=== PATIENT | female | born 1950 | race Caucasian/White ===

== ENCOUNTER 2017-12-09 12:13 | Outpatient (CLI) | payer MEDICARE, BC | END 2017-12-09 12:14 | disposition home or self-care (01) | LOC: BICRAD 12:13 | PROVIDERS: ATTEND Family Medicine | DX: M25.551 Pain in right hip (principal); M16.11 Unilateral primary osteoarthritis, right hip; M47.898 Other spondylosis, sacral and sacrococcygeal region | CPT/HCPCS: 72202 ==

== ENCOUNTER 2018-05-21 10:35 | Outpatient (CLI) | payer MEDICARE, BC | END 2018-05-21 10:36 | disposition home or self-care (01) | LOC: BICMAMMO 10:35 | PROVIDERS: ATTEND Family Medicine | DX: Z12.31 Encounter for screening mammogram for malignant neoplasm of breast (principal); Z80.3 Family history of malignant neoplasm of breast | CPT/HCPCS: 77063; 77067 ==

== ENCOUNTER 2018-08-04 02:44 | Observation (INO) | payer MEDICARE, BC ==
[2018-08-04 03:10] LABS: #Basophils 0.1 thou/uL (0.0-0.2); #Eosinphils 0.3 thou/uL (0.0-0.7); #Lymphocytes 1.4 thou/uL (1.20-3.40); #Monocytes 0.5 thou/uL (0.11-0.59); #Neutrophils 3.4 thou/uL (1.40-6.50); %Eosinophils 5.5 % (0.0-10.0); %Lymphocytes 24.3 % (21.0-51.0); %Monocytes 7.9 % (0.0-10.0); %Neutrophils 60.4 % (42.0-75.0); Hemoglobin 12.6 g/dL (12.0-16.0); Mean Corpuscular HGB CONC 31.9 g/dL (32.0-36.0); Mean Corpuscular Hemoglobin 29.6 pg (27.0-31.0); Mean Corpuscular Volume 92.9 fL (78.0-98.0); Mean Platelet Volume 6.8 fL (7.4-10.4); Platelet Count 230 thou/uL (130-400); RBC Distribution Width 12.8 % (11.5-14.5); Red Blood Cell (RBC) Count 4.25 mill/uL (4.20-5.40); White Blood Cell (WBC) Count 5.7 thou/uL (4.8-10.8)
[2018-08-04] MEDS ORDERED: Nitroglycerin 4.9 GM Bottle ONE (03:23)
[2018-08-04] MEDS ORDERED: Nitroglycerin 0.4 MG TAB (25 Tab Bottle) ONE (03:27)
[2018-08-04] MEDS ORDERED: Acetaminophen 500 MG TAB ONE (03:42)
[2018-08-04 03:50] LABS: AST (SGOT) 24 U/L (5-34); Protein, Total 6.9 g/dL (6.0-8.3)
[2018-08-04 03:53] LABS: ALT (SGPT) 24 U/L (8-55); Albumin 4.5 g/dL (3.4-4.8); Alkaline Phosphatase 68 U/L (40-150); Anion Gap 14 mmol/L (10-20); BUN (Urea Nitrogen) 22 mg/dL (9.8-20.1); Bilirubin, Total 0.4 mg/dL (0.2-1.2); Calc. Creatinine Clearance 0 mL/min (70-130); Calcium 10.8 mg/dL (7.8-10.44); Carbon Dioxide 23 mmol/L (23-31); Chloride 107 mmol/L (98-107); Estimated GFR-MDRD 75; Globulin 2.4 g/dL (2.4-3.5); Glucose 107 mg/dL (80-115); Sodium 140 mmol/L (136-145)
[2018-08-04] MEDS ORDERED: Aspirin Chewable 81 MG TAB ONE (03:58)
[2018-08-04 07:07] LABS: Troponin I Less than 0.010 ng/mL (< 0.028)
[2018-08-04] MEDS ORDERED: Eucerin (Mineral Oil/Petrolatum,White) 30 gm Jar TOP PRN (07:26)
[2018-08-04] MEDS ORDERED: Zolpidem Tartrate 5 MG TAB PO PRN (07:26)
[2018-08-04] MEDS ORDERED: Cepastat Lozenges 1 LOZ PO PRN (07:26)
[2018-08-04] MEDS ORDERED: Ondansetron PF 4 MG/2 ML Vial IVP PRN (07:26)
[2018-08-04] MEDS ORDERED: Loratadine 10 MG TAB PO PRN (07:26)
[2018-08-04] MEDS ORDERED: Ondansetron ODT 4 MG TAB PO PRN (07:26)
[2018-08-04] MEDS ORDERED: hydrALAZINE 20 MG/ML VIAL SLOW IVP PRN (07:26)
[2018-08-04] MEDS ORDERED: Diabetic Tussin 200 MG/10 ML UDCUP PO PRN (07:26)
[2018-08-04] MEDS ORDERED: Bisacodyl 10 MG SUPP PR PRN (07:26)
[2018-08-04] MEDS ORDERED: Calcium Carbonate 500 MG ChewTAB PO PRN (07:26)
[2018-08-04] MEDS ORDERED: Acetaminophen 325 MG TAB PO PRN (07:26)
[2018-08-04] MEDS ORDERED: Sodium Chloride 0.65% Nasal 44 ML BOT EA NARE PRN (07:26)
[2018-08-04] MEDS ORDERED: Artificial Tears 18 DROP/0.9 ML EA EYE PRN (07:26)
[2018-08-04] MEDS ORDERED: Loperamide HCl 2 MG CAP PO PRN (07:26)
[2018-08-04] MEDS ORDERED: Nitroglycerin 0.4 MG TAB (25 Tab Bottle) SL PRN (07:26)
[2018-08-04] MEDS ORDERED: Senokot S 8.6-50 MG TAB PO PRN (07:26)
--- NOTE | 2018-08-04 08:49 | RAD ---
CHEST 1 VIEW: Date: 08/04/18 HISTORY: Chest pain. COMPARISON: None. FINDINGS: Lungs are clear. No pneumothorax or effusion. Cardiac silhouette and mediastinal contour within buzz l limits. IMPRESSION: No acute intrathoracic abnormality. POS: [facility]
[2018-08-04] MEDS ORDERED: Aspirin 325 mg Enteric Coated Tablet PO SCH (09:00)
[2018-08-04] MEDS ORDERED: Famotidine 20 MG TAB PO SCH (09:00)
[2018-08-04 09:26] LABS: Troponin I Less than 0.010 ng/mL (< 0.028)
[2018-08-04] MEDS ORDERED: Famotidine 20 MG TAB ONE (10:41)
--- NOTE | 2018-08-04 12:14 | SS ---
DATE OF ADMISSION: 08/04/2018 DATE OF DISCHARGE: 08/04/2018 PRIMARY CARE PHYSICIAN: Danita Cantrell MD REASON FOR ADMISSION: Chest pain. HISTORY OF PRESENT ILLNESS: A 68-year-old female who has underlying history of hypertension, osteoarthritis, who presented to emergency room for evaluation of chest pain. The patient reports that for last couple of weeks, she is experiencing intermittent chest pain which she describes to left-sided substernal tightness feeling, lasts for few minutes, then subsides by itself. There is no particular relation with exertion, food, or respiration. Last night around midnight, she was experiencing similar discomfort in her chest with tightness feeling without any radiation, without any association of nausea, vomiting, or diaphoresis. She was feeling mild shortness of breath. She checked her blood pressure, at that time her blood pressure was very high. Per patient, it was 180/101. She checked blood pressure several times periodically after resting, but her blood pressure was still remaining very high and that is why finally she decided to go to emergency room because her substernal chest tightness feeling was not subsiding. In the emergency room, electrocardiogram was unremarkable without any acute ischemic changes. She had nonspecific right bundle-branch block pattern. She also had negative 3 cardiac enzymes and subsequently, the patient was completely chest pain-free in the emergency room. In the emergency room, she was given aspirin, Tylenol, and nitroglycerin sublingual. Subsequently, the patient did not have any further chest pain. The patient already ruled out acute coronary syndrome at [facility] as our hospital does not have any bed available and that is why this patient is transferred to [facility], where I have evaluated personally bedside and history obtained from her. Currently, the patient is completely asymptomatic. She agreed to go for stress test. The patient reports that several years ago, she had cardiac cath done. At that time, everything was normal. Normally, the patient's blood pressure remains in 130s and recently cholesterol checked, which was also at target. The patient is doing healthy lifestyle measure at home. She is nonsmoker. She does have family history of coronary artery disease. REVIEW OF SYSTEMS: CONSTITUTIONAL: Negative for weight loss or gain, ability to conduct usual activities. SKIN: Negative for rash, itching. EYES: Negative for double vision, pain. ENT/MOUTH: Negative for nose bleeding, neck stiffness, pain, tenderness. CARDIOVASCULAR: Negative for palpitations, dyspnea on exertion, orthopnea. RESPIRATORY: Negative for shortness of breath, wheezing, cough, hemoptysis, fever or night sweats. GASTROINTESTINAL: Negative for poor appetite, abdominal pain, heartburn, nausea , vomiting, constipation, or diarrhea. GENITOURINARY: Negative for urgency, frequency, dysuria, nocturia. MUSCULOSKELETAL: Negative for pain, swelling. NEUROLOGIC/PSYCHIATRIC: Negative for anxiety, depression. ALLERGY/IMMUNOLOGIC: Negative for skin rash, bleeding tendency. Please see my HPI for pertinent positive and negative. All other review of systems reviewed and negative except as mentioned in HPI. PAST MEDICAL HISTORY: Hypertension, premature ventricular complexes, osteoarthritis. PAST SURGICAL HISTORY: Breast lump removed from breast, cardiac catheterization , cholecystectomy, lumbar laminectomy. PAST PSYCHIATRIC HISTORY: Reviewed and negative. SOCIAL HISTORY: The patient is . She drinks alcohol socially occasionally. She denies any smoking. She denies any other illicit drug abuse. FAMILY HISTORY: Positive for coronary artery disease to her father. No family history of cancer or stroke. ALLERGIES: NO KNOWN DRUG ALLERGIES. CURRENT HOME MEDICATIONS: 1. Atenolol 25 mg daily. 2. Detrol 4 mg daily. 3. Aspirin 81 mg daily. 4. Calcium with vitamin D 2 tablets daily. 5. Glucosamine 3 tablets daily. EMERGENCY ROOM COURSE: The patient is given aspirin, Tylenol, and nitroglycerin. PHYSICAL EXAMINATION: VITAL SIGNS: Currently, blood pressure 145/80, pulse 68, respiratory rate 16, temperature 98.3, saturation 99% on room air. Weight 64.4 kg. GENERAL: The patient is currently alert, oriented, no acute distress. HEENT: Head; normocephalic, atraumatic. Eyes; pupils round, reactive to light. Extraocular muscle intact. ENT, oropharynx within normal limits. Moist mucous membranes. No oral lesion. No pharyngeal erythema. No exudate. NECK: Supple. No JVD. No thyromegaly. No carotid bruit. No jugular venous distention. LUNGS: Clear to auscultation without any rhonchi or rales. CARDIAC: S1 and S2 regular. No murmur. No gallop. No rub. ABDOMEN: Soft. Bowel sounds present. Nontender. Nondistended. No organomegaly. No mass. No suprapubic tenderness. BACK: Unremarkable. No CVA tenderness. EXTREMITIES: Upper extremities, passive movement of all joints are normal. Lower extremities, no edema. Good distal pulsation. SKIN: No skin rash. HEMATOLOGICAL SYSTEM: No lymphadenopathy. NEUROLOGIC: Nonfocal examination. SIGNIFICANT LABORATORY DATA: EKG showing incomplete right bundle-branch block pattern, nonspecific ST-T changes. Chest x-ray based on my review, no acute cardiopulmonary process. CBC; WBC 5.7, hemoglobin 12.6, platelet 230. BMP; sodium 140, potassium 4.0, chloride 107, carbon dioxide 23, BUN 22, creatinine 0.77, glucose 107, calcium 10.8. LFT; protein 6.9, albumin 4.5, AST 24, ALT 24. BNP 135. Cardiac enzymes negative x3. ASSESSMENT AND PLAN: 1. Chest pain. Already ruled out acute coronary syndrome. Underlying cardiac etiology needs to be excluded. She has atypical description of her chest pain. We will obtain exercise Cardiolite stress test for diagnostic reason. Meanwhile, we will continue with aspirin and the patient's home medication atenolol 25 mg p.o. daily. The patient will need better blood pressure control and that is why I advised her to follow up with primary care physician. If stress test is negative, then this patient will be discharged home later on today. 2. Hypertension, currently not well controlled, but may be related with stress response, but I advised to increase atenolol 25 mg twice daily and monitor blood pressure at home and then follow up with primary care physician to add any other antihypertensive medication after discharge. 3. Urge incontinence. Continue Detrol 4 mg p.o. daily. 4. Osteoarthritis. Continue calcium with vitamin D and glucosamine as per home dosage. DVT prophylaxis not needed because we are expecting discharge in 24 hours. Gastrointestinal prophylaxis. Pepcid 20 mg p.o. b.i.d. 5. Code status: The patient is full code. The patient's is surrogate decision maker. DISPOSITION PLAN: If stress is negative, then the patient will be discharged later on today. DISCHARGE DISPOSITION: Home. PRIMARY DISCHARGE DIAGNOSIS: Chest pain, ruled out acute coronary syndrome. SECONDARY DISCHARGE DIAGNOSES: Hypertension, osteoarthritis, urge incontinence. PRIMARY PROCEDURE/OPERATION: None. RADIOLOGICAL INVESTIGATION: Chest x-ray, normal. Stress test, pending. Significant labs, please see above my H and P. DISCHARGE MEDICATIONS: The patient is advised to take; 1. Aspirin 81 mg p.o. daily. 2. Atenolol 25 mg p.o. b.i.d. 3. The patient will continue Detrol 4 mg daily and glucosamine as per home dosage. CONTRAINDICATION: None. CODE STATUS: Full code. INPATIENT PLATFORM LOADER: None. ALLERGIES: NO KNOWN DRUG ALLERGIES. DISCHARGE PLAN: Posthospital, the patient will make appointment with primary care physician in one week. HOSPITAL COURSE: Please see my HPI above for further details. This patient is admitted for chest pain. If her stress test is negative, then we will consider discharging her home later on today. stress test is normal. pt is admitted and discharged on same day Job ID: [id number] [facility]
--- NOTE | 2018-08-04 17:50 | NM ---
NUCLEAR MEDICINE CARDIAC STRESS TEST WITH EJECTION FRACTION 08/04/18 HISTORY: Chest pain. COMPARISON: None. TECHNIQUE: Stress and rest performed after the intravenous administration of 27.3 and 9.4 millicuries technetium 99m Sestamibi, respectively. No scar or ischemia. Normal wall motion. Calculated ejection fraction is 93%. IMPRESSION: Normal examination. POS: [facility]
== END 2018-08-04 19:01 | disposition home or self-care (01) ==
LOC: SCSER 02:44 → ERHOLD 05:17
PROVIDERS: ADMIT Internal Medicine; ATTEND Internal Medicine
DX: R07.9 Chest pain, unspecified (principal); I10 Essential (primary) hypertension; N39.41 Urge incontinence; I49.3 Ventricular premature depolarization; M19.90 Unspecified osteoarthritis, unspecified site; Z90.49 Acquired absence of other specified parts of digestive tract; Z79.82 Long term (current) use of aspirin; Z79.2 Long term (current) use of antibiotics; Z79.899 Other long term (current) drug therapy; Z98.890 Other specified postprocedural states
CPT/HCPCS: 71045; 78452; 80053; 83880; 84484 ×2; 85025; 93005; 93017; 99285; A9500; G0378

== ENCOUNTER 2018-12-04 13:07 | Outpatient (CLI) | payer MEDICARE, BC ==
--- NOTE | 2018-12-04 14:04 | BD ---
BONE DENSITOMETRY USING DEXA: HISTORY: Postmenopausal screening for osteoporosis. FINDINGS: Lumbar Spine: BMD (g/cm2) L1 0.974 T-Score: -0.1 Z-Score: 1.6 L2 1.007 T-Score: -0.2 Z-Score: 1.7 L3 1.228 T-Score: 1.3 Z-Score: 3.3 L4 1.352 T-Score: 2.6 Z-Score: 4.7 L1-L4 1.159 T-Score: 1.0 Z-Score: 3.0 Femoral Neck: 0.781 T-Score: -0.6 Z-Score: 1.0 Total Femur: 0.846 T-Score: -0.8 Z-Score: 0.6 Impression: Normal bone mineral density. No evidence of osteopenia/osteoporosis. POS: [facility]
== END 2018-12-04 13:08 | disposition home or self-care (01) ==
LOC: BICMAMMO 13:07
PROVIDERS: ATTEND Family Medicine
DX: Z13.820 Encounter for screening for osteoporosis (principal); Z78.0 Asymptomatic menopausal state
CPT/HCPCS: 77080

== ENCOUNTER 2019-06-11 10:49 | Outpatient (CLI) | payer MEDICARE, BC ==
--- NOTE | 2019-06-11 11:12 | RAD ---
XR Knee Lt 4 View STANDARD HISTORY: Left knee pain FINDINGS: No fracture or dislocation is identified. Chondrocalcinosis is present. There are mild degenerative c hanges.
== END 2019-06-11 10:50 | disposition home or self-care (01) ==
LOC: BICRAD 10:49
PROVIDERS: ATTEND Family Medicine
DX: M25.562 Pain in left knee (principal)

== ENCOUNTER 2019-06-22 10:36 | Outpatient (CLI) | payer MEDICARE, BC ==
--- NOTE | 2019-06-22 11:29 | MMO ---
Bilateral MAMMO Bilat Screen [facility]. CLINICAL HISTORY: Patient is 69 years old and is seen for screening. The patient has the following family history of breast cancer: mother, malignant (generic). The patient has no personal history of cancer. The patient has a history of left Excisional Biopsy in over 20 yrs ago - benign. VIEWS: The views performed were: bilateral craniocaudal with tomosynthesis and bilateral mediolateral oblique with tomosynthesis. FILMS COMPARED: The present examination has been compared to prior imaging studies performed at [facility] on 02/06/2015, 02/12/2016, 03/17/2017 and 05/21/2018. This study has been interpreted with the assistance of computer-aided detection. MAMMOGRAM FINDINGS: There are scattered fibroglandular densities. Finding 1: There are stable benign appearing calcifications seen in both breasts. Finding 2: There is a stable post-surgical scar seen in the left breast. There are no suspicious masses, suspicious calcifications, or new areas of architectural distortion. IMPRESSION: THERE IS NO MAMMOGRAPHIC EVIDENCE OF MALIGNANCY. A ROUTINE FOLLOW-UP MAMMOGRAM IN 1 YEAR IS RECOMMENDED. THE RESULTS OF THIS EXAM WERE SENT TO THE PATIENT. ACR BI-RADS Category 2 - Benign finding MAMMOGRAPHY NOTE: 1. A negative mammogram report should not delay a biopsy if a dominant of clinically suspicious mass is present. 2. Approximately 10% to 15% of breast cancers are not detected by mammography. 3. Adenosis and dense breasts may obscure an underlying neoplasm. Reported by: YEIMI CHOWDHURY MD Electonically Signed: [id number]
== END 2019-06-22 10:37 | disposition home or self-care (01) ==
LOC: BICMAMMO 10:36
PROVIDERS: ATTEND Family Medicine
DX: Z12.31 Encounter for screening mammogram for malignant neoplasm of breast (principal); Z80.3 Family history of malignant neoplasm of breast; Z91.89 Other specified personal risk factors, not elsewhere classified
CPT/HCPCS: 77063; 77067

== ENCOUNTER 2020-12-21 15:30 | Inpatient (IN) | payer MEDICARE, BC ==
[2020-12-26] MEDS ORDERED: Sodium Chloride 0.9% 100 ML ONE (06:09)
[2020-12-26] MEDS ORDERED: Tranexamic Acid 1,000 MG/10 ML VIAL ONE (06:09)
[2020-12-26] MEDS ORDERED: Vancomycin 1 GM/200 ML BAG ONE (06:09)
[2020-12-26] MEDS ORDERED: Fentanyl 100 MCG/2 ML VIAL ONE ×4 (06:22→09:47)
[2020-12-26] MEDS ORDERED: Midazolam HCl 2 mg/2 ml Vial ONE (06:39)
[2020-12-26] MEDS ORDERED: Lidocaine 1% (PF) 30 ML VIAL ONE (06:40)
[2020-12-26] MEDS ORDERED: EPINEPHrine 1 MG/ML AMP ONE ×2 (06:42→06:48)
[2020-12-26] MEDS ORDERED: Bupivacaine PF 0.5% 30 ML VIAL ONE (06:48)
[2020-12-26] MEDS ORDERED: Bupivacaine 0.25% HCL 30 ML VIAL ONE (06:48)
[2020-12-26] MEDS ORDERED: Fentanyl 100 MCG/2 ML VIAL IV PRN (07:12)
[2020-12-26] MEDS ORDERED: Zolpidem Tartrate 5 MG TAB PO PRN ×2 (07:15→11:24)
[2020-12-26] MEDS ORDERED: Promethazine HCl 25 MG/ML VIAL IM PRN ×3 (07:15→11:24)
[2020-12-26] MEDS ORDERED: Ropivacaine HCl/PF 250 ML in Premix Bag 1 BAG NERVE BLCK SCH (07:15)
[2020-12-26] MEDS ORDERED: traMADol HCl 50 MG TAB PO PRN ×3 (07:15→11:24)
[2020-12-26] MEDS ORDERED: Bupivacaine HCl 0.5%/Epinephrine 1:200,000/PF 30 ml Vial ONE (07:25)
[2020-12-26] MEDS ORDERED: Ondansetron PF 4 MG/2 ML Vial ONE (07:25)
[2020-12-26] MEDS ORDERED: Ropivacaine 2% HCl/PF (20 MG/10 ML VIAL) ONE (07:25)
[2020-12-26] MEDS ORDERED: Ketorolac Tromethamine 30 MG/ML VIAL ONE (07:25)
[2020-12-26] MEDS ORDERED: Dexamethasone 20 MG/5 ML VIAL ONE (07:25)
[2020-12-26] MEDS ORDERED: ePHEDrine 50 MG/ML VIAL ONE ×2 (07:25)
[2020-12-26] MEDS ORDERED: PROPOFOL 200 MG/20 ML VIAL ONE (07:25)
[2020-12-26] MEDS ORDERED: Sodium Chloride 0.9% 10 ML ONE (07:32)
[2020-12-26] MEDS ORDERED: Sterile Water 10 ML ONE (08:18)
[2020-12-26] MEDS ORDERED: Promethazine HCl 25 MG/ML VIAL IVPB PRN (09:07)
[2020-12-26] MEDS ORDERED: Ondansetron HCl/PF 4 MG/2 ML Vial IVP PRN (09:07)
[2020-12-26] MEDS ORDERED: Ipratropium Oral Inhaler INH PRN (11:07)
[2020-12-26] MEDS ORDERED: Cyclobenzaprine 10 MG TAB PO PRN (11:08)
[2020-12-26] MEDS ORDERED: HYDROcodone/Acetaminophen 10/325 mg Tablet PO PRN ×2 (11:24)
[2020-12-26] MEDS ORDERED: Acetaminophen 325 MG TAB PO PRN (11:24)
[2020-12-26] MEDS ORDERED: Ketorolac Tromethamine 30 MG/ML VIAL IVP PRN (11:24)
[2020-12-26] MEDS ORDERED: Ondansetron PF 4 MG/2 ML Vial IVP PRN (11:24)
[2020-12-26] MEDS ORDERED: diphenhydrAMINE 25 MG CAP PO PRN (11:24)
[2020-12-26] MEDS ORDERED: Fentanyl 100 MCG/2 ML VIAL SLOW IVP PRN ×2 (11:24)
[2020-12-26] MEDS: Ondansetron PF 4 MG/2 ML Vial IVP PRN (12:34)
[2020-12-26] MEDS: Dextrose 5 %-0.45 % NaCl 1,000 ML IV SCH ×2 (12:38→21:30)
[2020-12-26] MEDS: Multivitamin W/ Minerals 1 TAB PO SCH (12:39)
[2020-12-26] MEDS: Senokot S 8.6-50 MG TAB PO SCH ×2 (12:39→20:52)
[2020-12-26] MEDS: Ketorolac Tromethamine 30 MG/ML VIAL IVP SCH ×3 (12:40→23:21)
[2020-12-26 12:48] VITALS: BMI 22.7
[2020-12-26] MEDS ORDERED: Promethazine HCl 12.5 MG in Sodium Chloride 0.9% 50 ML IVPB PRN (13:22)
[2020-12-26] MEDS: CEFAZOLIN 2 GM in Premix Bag 1 BAG IVPB SCH ×2 (15:20→20:55)
[2020-12-26] MEDS ORDERED: Vancomycin 1 GM in Premix Bag 1 BAG IVPB SCH (19:00)
[2020-12-26] MEDS: Loratadine 10 MG TAB PO SCH (20:52)
[2020-12-26] MEDS: Ferrous Gluconate 324 MG TAB PO SCH (20:52)
[2020-12-26] MEDS: Aspirin 81 mg Enteric Coated Tablet PO SCH (20:53)
[2020-12-26] MEDS: Trospium 20 MG TAB PO SCH (20:53)
[2020-12-27] MEDS: Ketorolac Tromethamine 30 MG/ML VIAL IVP SCH (05:48)
[2020-12-27 06:08] LABS: Hemoglobin 9.6 g/dL (12.0-16.0); Mean Corpuscular HGB CONC 34.2 g/dL (32.0-36.0); Mean Corpuscular Hemoglobin 32.3 pg (27.0-31.0); Mean Corpuscular Volume 94.3 fL (78.0-98.0); Mean Platelet Volume 7.9 fL (7.4-10.4); Platelet Count 175 thou/uL (130-400); RBC Distribution Width 11.8 % (11.5-14.5); Red Blood Cell (RBC) Count 2.98 mill/uL (4.20-5.40); White Blood Cell (WBC) Count 6.9 thou/uL (4.8-10.8)
[2020-12-27] MEDS: HYDROcodone/Acetaminophen 10/325 mg Tablet PO PRN ×3 (09:44→15:06)
[2020-12-27] MEDS: Trospium 20 MG TAB PO SCH ×2 (09:47→20:46)
[2020-12-27] MEDS: Multivitamin W/ Minerals 1 TAB PO SCH (09:47)
[2020-12-27] MEDS: Atenolol 25 MG TAB PO SCH (09:47)
[2020-12-27] MEDS: Senokot S 8.6-50 MG TAB PO SCH ×2 (09:48→20:46)
[2020-12-27] MEDS: Ferrous Gluconate 324 MG TAB PO SCH ×2 (09:49→20:46)
[2020-12-27] MEDS: Hydrochlorothiazide 25 MG TAB PO SCH ×2 (09:50→14:26)
[2020-12-27] MEDS: Aspirin 81 mg Enteric Coated Tablet PO SCH ×2 (09:51→20:46)
[2020-12-27] MEDS: Losartan 25 MG TAB PO SCH (09:52)
[2020-12-27] MEDS: Dextrose 5 %-0.45 % NaCl 1,000 ML IV SCH ×2 (09:52→16:51)
[2020-12-27] MEDS: Loratadine 10 MG TAB PO SCH (20:46)
[2020-12-27] MEDS: Ondansetron PF 4 MG/2 ML Vial IVP PRN (23:06)
[2020-12-28] MEDS: Dextrose 5 %-0.45 % NaCl 1,000 ML IV SCH (03:47)
[2020-12-28] MEDS ORDERED: Ondansetron ODT 4 MG TAB PO PRN (06:00)
[2020-12-28 06:01] LABS: Hemoglobin 9.6 g/dL (12.0-16.0); Mean Corpuscular HGB CONC 34.4 g/dL (32.0-36.0); Mean Corpuscular Hemoglobin 32.5 pg (27.0-31.0); Mean Corpuscular Volume 94.3 fL (78.0-98.0); Mean Platelet Volume 7.4 fL (7.4-10.4); Platelet Count 190 thou/uL (130-400); RBC Distribution Width 11.6 % (11.5-14.5); Red Blood Cell (RBC) Count 2.97 mill/uL (4.20-5.40); White Blood Cell (WBC) Count 5.6 thou/uL (4.8-10.8)
[2020-12-28 07:56] VITALS: BP 145/74; TEMP 98.5
[2020-12-28] MEDS: Hydrochlorothiazide 25 MG TAB PO SCH (08:39)
[2020-12-28] MEDS: Aspirin 81 mg Enteric Coated Tablet PO SCH (08:39)
[2020-12-28] MEDS: Losartan 25 MG TAB PO SCH (08:40)
[2020-12-28] MEDS: Senokot S 8.6-50 MG TAB PO SCH (08:40)
[2020-12-28] MEDS: Atenolol 25 MG TAB PO SCH (08:40)
[2020-12-28] MEDS: Multivitamin W/ Minerals 1 TAB PO SCH (08:40)
[2020-12-28] MEDS: Ferrous Gluconate 324 MG TAB PO SCH (08:41)
[2020-12-28] MEDS: Trospium 20 MG TAB PO SCH (08:45)
[2020-12-28] MEDS: HYDROcodone/Acetaminophen 10/325 mg Tablet PO PRN (08:47)
== END 2020-12-28 11:30 | disposition home or self-care (01) | DRG 470 ==
LOC: SJJU 12-26 05:36 → SURG A 12-26 10:34 → EDSTATUS 12-26 15:30
PROVIDERS: ADMIT Orthopaedic Surgery; ATTEND Orthopaedic Surgery
PROC: 0SRD0J9 Replacement of Left Knee Joint with Synthetic Substitute, Cemented, Open Approach (ICD-10-PCS; principal; 2020-12-26)
DX: M17.12 Unilateral primary osteoarthritis, left knee (principal); M21.062 Valgus deformity, not elsewhere classified, left knee; Z20.822 Contact with and (suspected) exposure to COVID-19; I10 Essential (primary) hypertension; J30.2 Other seasonal allergic rhinitis; F41.9 Anxiety disorder, unspecified; D64.9 Anemia, unspecified; Z79.82 Long term (current) use of aspirin; Z79.899 Other long term (current) drug therapy; Z79.51 Long term (current) use of inhaled steroids
CPT/HCPCS: 36415; 85027; C1713; C1776; J0171; J0690; J1100; J1885; J2001; J2250; J2405; J2550; J2704; J2795; J3010; J3370; J3490; Q0162; S0020